=== PATIENT | female | born 1940 | race Caucasian/White ===

== ENCOUNTER 2017-02-08 00:29 | Inpatient (IN) | payer OTHER ==
[2017-02-08] VITALS (7 sets, daily range): BP systolic 117–158; BP diastolic 36–64
[~2017-02-08] VITALS: Ht 172.7 cm; Wt 77.1 kg
--- NOTE | ~2017-02-08 | HC ---
[facility] [place] [address] CONSULTATION Name: CORRY BRISENO Room #: 463-P [facility] IN M.R.#: [id number] Admission: 02/09/17 Attend Phys: Robel Wilson Discharge: 02/09/17 Date of : 40 Report #: [id number] THIS REPORT FOR: //name// CC: Kemal Doran DATE OF SERVICE: 02/08/2017 HISTORY OF PRESENT ILLNESS: This is a 76-year-old female patient who was evaluated by me today for an episode of what she described as lightheadedness. Symptoms are somewhat nonspecific. It happened yesterday. She was feeling hot and she became dizzy. She did not have any associated ____ with any focal deficit. She did have some balance problem with it. She could not get up with it. Symptoms were moderately severe. This came spontaneously and became better spontaneously. Review of system indicates that this patient had a tremor. She was diagnosed with essential tremor. A stimulator was put in 2005 at [facility]. It improved this tremor significantly. This stimulator is not compatible with MRI and she indicates she cannot have an MRI. She does have some trouble with breast lumps and she had some radiation in the past. She does have a history of depression and she takes medication for that. As per record, she has a history of atrial fibrillation and she is on Eliquis for that. REVIEW OF SYSTEMS: Her 14-point review of system was carried out. She feels back to her baseline and she indicates that she does not have any new eye, ENT, cardiac, respiratory, GI, , musculoskeletal, constitutional, dermatological, hematological, psychiatric, throat or allergic symptom associated with present symptomatology. PAST MEDICAL HISTORY: Positive for atrial fibrillation. FAMILY HISTORY: Negative for early age strokes. SOCIAL HISTORY: She does not smoke. PHYSICAL EXAMINATION: Indicate that she is alert and responsive. Her speech is somewhat different, but she indicated this is her baseline. Her memory and fund of knowledge is unremarkable. Cranial nerve examination 2-12 is unremarkable. She has symmetrical strength, sensation, reflexes and tone in all 4 extremities. There is no cerebellar sign. She does have walking difficulty, but she indicates this is her baseline since several years and has been attributed to her stimulator. She is a well-developed individual who does not have any dysmorphic features of eyes, ears and face. Her vision and hearing is intact. She does have irregular heart. Her heart sounds looks unremarkable. She does not have any respiratory difficulty and there does not appear to be significant rhonchi. Her pulses are [facility] [address] [place] [address] CONSULTATION Name: CORRY BRISENO Room #: 463-P [facility] IN ..#: [id number] Admission: 02/09/17 Attend Phys: Robel Wilson Discharge: 02/09/17 Date of : 40 Report #: [id number] palpable. She has no edema, cyanosis or jaundice. Her blood pressure is 118/37, pulse is 60, temperature is 98, and respiration is 20. LABORATORY DATA: Her white count is normal and she is not anemic. Her creatinine is normal at 0.8. Her TSH is a trace high at 12.4. She did have a CT scan of the head done without contrast, which does not show any acute changes. IMPRESSION: This episode she has does not appear to be neurological. However, neurological etiology cannot be fully excluded. We will do some workup to exclude that. She cannot have an MRI because of her stimulator, so I discussed with her indication, potential complication and alternative for CT angio in this patient. She understands those things. She wants to proceed with it and we will do that to exclude that. I will suggest looking for systemic and cardiac etiology for the patient's symptom. That workup I will defer to you. If her neurological workup as outlined above, to be negative, then I think we should concentrate on looking for any systemic cause, which appear to be likely even now. RECOMMENDATIONS: 1. CT angio of the head and back. 2. EEG. 3. Her TSH is high and we will also check her B12 levels. Further workup in that regard, I will defer to yourself as well as treatment. 4. We will get PT, OT and see how she does with it. 5. I recommend that she follow up with the [facility] for her stimulator. If she wants to go to somebody closer, she can go here, but we do not have computer of her stimulator or doing other workup in that regard. Thank you very much for this referral and if you have any questions, please feel free to contact me. <ELECTRONICALLY SIGNED> By: Vince Jackson MD 02/09/17 [id number] Vince Jackson MD /nt
--- NOTE | ~2017-02-08 | EKG ---
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: BHARAT : 1940 Requested By: Aniket Johnson Order Number: [id number] MD: Anderson Corral Measurements Intervals [place] Rate: 53 P: 76 [place]: 249 QRS: -35 QRSD: 85 T: 7 QT: 347 QTc: 326 Interpretive Statements Poor quality data, interpretation affected Possibly sinus rhythm Artifact in lead(s) I,II,III,aVR,aVL,aVF,V1,V2,V3,V4,V5,V6 No previous ECG available for comparison repeat tracing recommended Electronically Signed On 02-08-2017 8:33:36 CDT by Anderson Corral [email or web address] <ELECTRONICALLY SIGNED> By: Anderson Corral MD, [facility] 02/08/17 0833 0126 0126 Anderson Corral MD, [facility] /EPI
[~2017-02-08 00:29] MED LIST: ACETAMINOPHEN325 M1 PO; ALEVE220 M1; ASA5UEC PO; CLONAZEPAM PO; COLACE100 MG PO; FLECAINIDE ACE100 MG PO; HYDROCODON-ACE1 EAC7 PO; LIPITOR10 MG PO; LIPITOR20 MG PO; LOPRESSOR25 PO; PRAVASTATIN SOD10 MG PO; PROTONIX40 M2 PO; PROTONIX40 MG PO; SERTRALINE HCL25 M1 PO; TOPROL XL25 MG PO; VALIUM5 MG PO; ZANTAC 150MG T150 M1 PO; ZOLOFT 50 MG TA50 M1 PO
[2017-02-08 01:05] LABS: HEMATOCRIT 40.4 % (37.0-47.0); HEMOGLOBIN 13.9 gm/dL (12.0-15.0); MCH 32.1 pg (26.0-34.0); MCHC 34.4 g/dL (28.0-37.0); MCV 93.1 fL (80.0-100.0); RBC 4.34 mil/uL (4.20-5.00); RDW 12.8 % (10.5-14.5); WBC 9.5 thou/uL (4.0-11.0)
[2017-02-08 01:27] LABS: ANION GAP 10 mmol/L (7-16); BUN 15 mg/dL (7-18); CHLORIDE 104 mmol/L (98-107); CO2 26 mmol/L (21-32); CREATININE 0.8 mg/dL (0.6-1.3); GLUCOSE 105 mg/dL (70-99); SODIUM 140 mmol/L (136-145); TROPONIN-I < 0.04 ng/mL (<0.04-0.07)
[2017-02-08 01:29] LABS: POTASSIUM 4.2 mmol/L (3.5-5.1)
[2017-02-08] MEDS ORDERED: ELIQUIS5 MG PO (03:32)
[2017-02-08] MEDS ORDERED: CLONAZEPAM 0.50.5 M1 (03:32)
[2017-02-08] MEDS ORDERED: LEVOTHYROXINE0.05 MG PO (03:33)
[2017-02-09] VITALS (8 sets, daily range): BP systolic 102–135; BP diastolic 42–60
[2017-02-09 06:41] LABS: ALBUMIN 3.2 g/dL (3.4-5.0); CALCIUM 8.8 mg/dL (8.5-10.1); CREATININE 0.9 mg/dL (0.6-1.3); MAGNESIUM 2.3 mg/dL (1.8-2.4); POTASSIUM 4.4 mmol/L (3.5-5.1); TOTAL BILIRUBIN 0.5 mg/dL (<0.1-1.0); TOTAL PROTEIN 5.7 g/dL (6.4-8.2)
[2017-02-09] MEDS ORDERED: LEVOTHYROXINE 0.1 MG PO (11:53)
== END 2017-02-09 15:57 | disposition home or self-care (01) | DRG 312 ==
LOC: ER 00:29 → EROBS 03:16 → 4W 03:16
PROVIDERS: Emergency Medicine; Nurse Practitioner
DX: I95.1 Orthostatic hypotension (principal); R00.1 Bradycardia, unspecified; I48.91 Unspecified atrial fibrillation; E78.5 Hyperlipidemia, unspecified; F32.9 Major depressive disorder, single episode, unspecified; I10 Essential (primary) hypertension; R25.1 Tremor, unspecified; F41.9 Anxiety disorder, unspecified; E03.9 Hypothyroidism, unspecified; M79.2 Neuralgia and neuritis, unspecified; T44.7X5A Adverse effect of beta-adrenoreceptor antagonists, initial encounter; Z28.21 Immunization not carried out because of patient refusal; Z85.3 Personal history of malignant neoplasm of breast; Z88.0 Allergy status to penicillin; Z88.1 Allergy status to other antibiotic agents; Z88.2 Allergy status to sulfonamides; Z87.891 Personal history of nicotine dependence; Z79.82 Long term (current) use of aspirin

== ENCOUNTER 2017-03-21 12:55 | Inpatient (IN) | payer OTHER ==
[~2017-03-21] VITALS: Ht 172.7 cm; Wt 64.2 kg
--- NOTE | ~2017-03-21 | D ---
[facility] [address] DISCHARGE SUMMARY Name: CORRY BRISENO Room #: 210-P [facility] IN M.R.#: [id number] Admission: 03/21/17 Attend Phys: Mina Prieto MD, Discharge: Date of : 40 Report #: [id number] THIS REPORT FOR: //name// CC: Kemal Prieto DISCHARGE DIAGNOSES: 1. Atrial fibrillation. 2. Sick sinus syndrome. 3. Parkinson's disease, status post Medtronic deep brain stimulator. PROCEDURES PERFORMED: [employer]. Mark dual-chamber pacemaker implantation. HISTORY: The patient is a 76-year-old with a known history of atrial fibrillation and sick sinus syndrome. She has recently been experiencing worsening bradycardia and her beta blockers had to be discontinued. She recently presented to the [facility] with AFib and was given a dose of metoprolol and then converted to sinus bradycardia in the 30s or 40s. As such, she was admitted to the hospital for further evaluation. HOSPITAL COURSE: She was monitored in the hospital and her anticoagulation was stopped. She remained in sinus rhythm throughout the hospitalization. On March 23, she underwent successful implantation of a [employer] Mark MRI-compatible pacemaker, implanted on the right side. The purpose of the MRI-compatible pacemaker was that she has an MRI-compatible deep brain stimulator and may need future neuro MRIs. The day after device implantation, she was doing well. Her vitals were stable. Telemetry showed sinus rhythm. Her device was checked and found to be functioning normally. There was no detectable interaction between her neuro stimulator and the newly implanted pacemaker. Her chest x-ray showed stable lead positions, with no pneumothorax. As such, she was deemed stable for discharge home. Discharge instructions were reviewed. DISCHARGE MEDICATIONS: She will resume her metoprolol 25 mg twice a day and she will continue her flecainide 100 mg twice a day. She was instructed to resume her anticoagulation on Sunday morning. She will follow up with me in clinic in 7-10 days for a site check. By: 0930 [id number] Evangelist Pierson MD /nt
--- NOTE | ~2017-03-21 | H ---
[facility] [place] [address] HISTORY AND PHYSICAL Name: CORRY BRISENO Room #: 210-P [facility] IN M.R.#: [id number] Admission: 03/21/17 Attend Phys: Mina Prieto MD, Discharge: 03/24/17 Date of : 40 Report #: [id number] THIS REPORT FOR: //name// CC: Kemal Prieto DATE OF SERVICE: 03/21/2017 HISTORY OF PRESENT ILLNESS: The patient is a 76-year-old female well known to myself. I admitted her from the office today. She had come in feeling poorly and brought herself in with AFib with rapid ventricular response. She has had intermittent issues with this AFib, but they have been fairly few and far between. Unfortunately, she is very symptomatic. She also has some underlying tachybrady, so we stopped the beta adin 6 months ago. Unfortunately, this due to significant bradycardia and lethargy. She felt better, but this is the first breakthrough. She is maintained on flecainide 100 b.i.d., Xanax, metoprolol had been discontinued as I stated, clonazepam b.i.d.; Eliquis 5 b.i.d. which we are currently holding, last dose was on the night of March 20, she did not take any today; Lipitor 10, Protonix, calcitriol. No chest pain or anginal complaints. I did obtain an echo Doppler at [facility] before we transferred her over. There is mitral valve prolapse which is noted with kpbw-[id number] MR, mild AI, EF is preserved. There is mild bilateral atrial enlargement. That formal report will be put on the chart. PAST MEDICAL HISTORY: for paroxysmal AFib, some Parkinson's like tremor with a deep brain stimulator placed in March which has significantly helped, breast cancer, mitral valve prolapse, mild pulmonary hypertension. No surgeries. ALLERGIES: PENICILLIN, BACTRIM, SULFA, AMOXICILLIN, ZITHROMAX, AND LATEX. SOCIAL HISTORY: Rare alcohol, remote smoker. She lives alone. She is accompanied by friends. REVIEW OF SYSTEMS: Essentially negative except for stated above. LABORATORY WORK: Sodium 141, potassium 4.2, BUN 14, creatinine 0.9. Liver function tests were normal. H and H 14 and 42 with a white count of 7. PHYSICAL EXAMINATION: GENERAL: Pleasant and alert, minimal resting tremor. VITAL SIGNS: Blood pressure 124/50, pulse is 40s (after dose of 50 of atenolol in the office, she became mildly bradycardic and hypotensive, but this has resolved with some fluids in the office). HEENT: Eyes reveal xanthelasmas. Pharynx is clear. [facility] [address] [place] [address] HISTORY AND PHYSICAL Name: CORRY BRISENO Room #: 210-P [facility] IN M.R.#: [id number] Admission: 03/21/17 Attend Phys: Mina Prieto MD, Discharge: 03/24/17 Date of : 40 Report #: [id number] NECK: Shows preserved upstrokes without JVD or bruits. LUNGS: Clear. CARDIAC: Regular rhythm, bradycardic, S1, S2. There is a holosystolic murmur and I do not appreciate a mid systolic click. ABDOMEN: Soft. No HSM, no abdominal bruit. EXTREMITIES: No edema. Pulses were intact. NEUROLOGIC: Nonfocal. SKIN: Warm and dry without xanthoma or ulcer. MUSCULOSKELETAL: No gross joint deformity. ASSESSMENT: 1. Tachybrady syndrome. 2. Early sick sinus. 3. Paroxysmal atrial fibrillation with rapid ventricular response, symptomatic. 4. Mitral valve prolapse, stable. 5. Hypertension. RECOMMENDATIONS AND PLAN: Admitted here to telemetry unit, last dose of Eliquis was Sunday night, March 20. Laboratory work is stable. She is stable low 40s, hemodynamically stable. We will proceed with permanent pacemaker in AV sequential trying to maintain sinus rhythm. Just she has mild biatrial enlargement and has not had a long duration of this AFib. She has been anticoagulated until yesterday without any issues. Dr. Pierson of the EP service will see and we will monitor here in CCU until pacemaker placement. Because of the anticoagulant, we will need to wait until Sunday morning, which will be 2-1/2 days since the last dose of Eliquis. This has been discussed with the patient and she is comfortable. Thank you for asking us to assist in the care of this patient. <ELECTRONICALLY SIGNED> By: Mina Prieto MD, FACC 04/02/17 0855 21 2324 Mina Prieto MD, FACC /nt
--- NOTE | ~2017-03-21 | P ---
[facility] [place] [address] PROCEDURE REPORT Name: CORRY BRISENO Room #: 210-P [facility] IN M.R.#: [id number] Admission: 03/21/17 Attend Phys: Mina Prieto MD, Discharge: Date of : 40 Report #: [id number] THIS REPORT FOR: //name// CC: Kemal Prieto DATE OF SERVICE: 03/23/2017 PROCEDURE: Pacemaker insertion. PREOPERATIVE DIAGNOSES: 1. Sick sinus syndrome. 2. Atrial fibrillation. 3. Tachycardia-bradycardia syndrome. HISTORY: The patient is a 76-year-old with history of atrial fibrillation and symptomatic sinus bradycardia, was recently in clinic when she was experiencing atrial fibrillation with rapid ventricular response. She was given a dose of metoprolol and she converted to sinus bradycardia with heart rates in the 30s and 40s, which was symptomatic. As such, we have recommended dual chamber pacemaker insertion. ANESTHESIA: The patient underwent MAC anesthesia with no anesthesia related complications. DESCRIPTION OF PROCEDURE: The patient underwent informed consent. We discussed the details of the procedure including the risks, which include but not limited to bleeding, infection, vascular damage as well as stroke or WI. She understood these risks and was willing to proceed. As such, she is brought to the EP laboratory in a fasting and state. Of note, she does have a Medtronic deep brain stimulator for Parkinson's disease, which is MRI compatible. As such, I recommended implantation of an MRI compatible [employer]. Mark pacemaker, so that she can continue to receive brain MRIs. As such, the patient received IV antibiotics prior to initiation of the procedure. She was prepped and draped in a sterile fashion. A venogram was performed showing patency of the right axillary vein. Next, I injected 20 mL of lidocaine below the level of the right clavicle. Incision was made. A pocket was created over the prepectoral fascia and then access was obtained twice to the right axillary vein using the extrathoracic approach, which she is positioned using the modified Seldinger technique. Leads were positioned both in the right ventricular apex and right atrial appendage both with adequate pacing and sensing thresholds and the leads were sutured to the prepectoral fascia using Ethibond suture. The device was connected to the leads, tug test were performed and the device was placed in the pocket. The pocket was irrigated with vancomycin solution and then the pocket [address] [address] PROCEDURE REPORT Name: CORRY BRISENO Room #: 210-P [facility] IN [facility]#: [id number] Admission: 03/21/17 Attend Phys: Mina Prieto MD, Discharge: Date of : 40 Report #: [id number] was closed in 3 layers using 2-0 for the deep layer, 3-0 for the mid layer, 4-0 for the subcuticular layer. Surgical glue was placed to the outer skin. The patient awoke neurologically and hemodynamically intact with no complications and no significant bleeding. The implanted pacemaker was an MRI compatible [id number], serial #[id number]. The atrial lead was a [employer] model #[id number], 46 cm, serial #[id number]. This lead demonstrated an R-wave of 1.3 millivolts, a pacing impedance of 540 ohms and pacing threshold of 1 volt at 1 millisecond. The RV lead was a [employer] model #[id number], 52 cm, serial #[id number] with an R-wave of 5.7 millivolts, a pacing impedance of 740 ohms and pacing threshold 0.5 volts at 0.4 milliseconds. The device was programmed to the DDDR 60-130 mode. Her Medtronic neuro stimulator was interrogated and there was no evidence of any interference between the neuro stimulator and the pacemaker. CONCLUSIONS: 1. Successful implantation of a [employer] MRI compatible dual chamber pacemaker. 2. Satisfactory atrial and ventricular pacing sensing thresholds. 3. No evidence of interference between the Medtronic deep brain stimulator and the [employer] Mark dual chamber pacemaker. By: 1446 [id number] Evangelist Pierson MD /nt
--- NOTE | ~2017-03-21 | HC ---
[facility] [place] [address] CONSULTATION Name: CORRY BRISENO Room #: 210-P [facility] IN M.R.#: [id number] Admission: 03/21/17 Attend Phys: Mina Prieto MD, Discharge: Date of : 40 Report #: [id number] THIS REPORT FOR: //name// CC: Kemal Prieto REASON FOR CONSULTATION: Sick sinus syndrome. HISTORY OF PRESENT ILLNESS: The patient is a 76-year-old female with a history of paroxysmal AFib, presented to the clinic with AFib with RVR, was given some beta blockers and then converted to sinus rhythm and had sinus paulie into the 30s and 40s with lightheadedness and fatigue. As such, I have been asked to have the patient undergo a pacemaker implantation. REVIEW OF SYSTEMS: GENERAL: No fevers or chills. HEENT: No blurred vision. CARDIOVASCULAR: No chest pain. PULMONARY: No productive cough. GASTROINTESTINAL: No nausea or vomiting. GENITOURINARY: No dysuria. MUSCULOSKELETAL: No myalgias or arthralgias. ENDOCRINE: No heat or cold intolerance. NEUROLOGIC: No focal weakness. MUSCULOSKELETAL: No myalgias or arthralgias. PAST MEDICAL HISTORY: 1. Paroxysmal AFib. 2. Sick sinus syndrome. 3. Deep vein stimulator Medtronic placed in March for her tremors, mitral valve prolapse, mild pulmonary hypertension. ALLERGIES: Include PENICILLIN, BACTRIM, SULFA, AMOXICILLIN, ZITHROMAX and LATEX. CURRENT MEDICATIONS: Include beta adin, flecainide, Eliquis, Sertraline, pantoprazole, atorvastatin, calcitriol. SOCIAL HISTORY: No tobacco. FAMILY HISTORY: Noncontributory. PHYSICAL EXAMINATION: VITAL SIGNS: Temperature 37.2, pulse 86, respiratory , blood pressure 134/42, sats 92%. LABORATORY DATA: Labs have been reviewed. White count 7.7, hemoglobin 14.3, [facility] [address] [place] [address] CONSULTATION Name: CORRY BRISENO Room #: [address] [place] [address] [place] [facility]#: [id number] Admission: 03/21/17 Attend Phys: Mina Prieto MD, Discharge: Date of : 40 Report #: [id number] platelets 235. Chemistries: Potassium 4.2, creatinine is 0.9. ASSESSMENT AND PLAN: In summary, the patient is a 76-year-old with a history of atrial fibrillation as well as sick sinus syndrome manifesting symptoms of tachycardia-bradycardia syndrome. In order to optimally control her arrhythmias, she will need to be on both beta adin and flecainide, which she cannot tolerate due to the bradycardia. As such, I have recommended dual chamber pacemaker implantation. We have discussed the details of the procedure including the risks, which include but not limited to bleeding, infection, pneumothorax, and cardiac perforation. I have recommended that she undergo an MRI compatible pacemaker given her known deep brain stimulator and neurologic issues and certainly the need for future MRIs. Thank you for allowing me to participate in her care. <ELECTRONICALLY SIGNED> By: Evangelist Pierson MD 03/23/17 1533 0840 1133 Evangelist Pierson MD /nt
[~2017-03-21 12:55] MED LIST changes: +CLONAZEPAM 0.50.5 M1; +ELIQUIS5 MG PO; +LEVOTHYROXINE 0.1 MG PO; +LEVOTHYROXINE0.05 MG PO
[2017-03-21 14:20] VITALS: BP 117/59
[2017-03-21] MEDS ORDERED: CALCITRIOL0.25 MCG PO (15:05)
[2017-03-21 18:02] LABS: HEMATOCRIT 42.7 % (37.0-47.0); HEMOGLOBIN 14.3 gm/dL (12.0-15.0); MCH 31.8 pg (26.0-34.0); MCHC 33.6 g/dL (28.0-37.0); MCV 94.5 fL (80.0-100.0); RBC 4.52 mil/uL (4.20-5.00); RDW 12.9 % (10.5-14.5); WBC 7.7 thou/uL (4.0-11.0)
[2017-03-21 18:18] LABS: ALBUMIN 3.5 g/dL (3.4-5.0); CALCIUM 8.9 mg/dL (8.5-10.1); CREATININE 0.9 mg/dL (0.6-1.0); POTASSIUM 4.2 mmol/L (3.5-5.1); TOTAL BILIRUBIN 0.5 mg/dL (<0.1-1.0); TOTAL PROTEIN 6.8 g/dL (6.4-8.2)
[2017-03-21 20:48] VITALS: BP 125/50
[2017-03-22] VITALS (7 sets, daily range): BP systolic 90–124; BP diastolic 45–59
[2017-03-23] VITALS (11 sets, daily range): BP systolic 100–145; BP diastolic 42–82
[2017-03-24 04:12] VITALS: BP 113/66
[2017-03-24 07:11] VITALS: BP 144/77
[2017-03-24 07:15] VITALS: BP 144/77
[2017-03-24 09:04] VITALS: BP 144/77
[2017-03-24] MEDS ORDERED: LOPRESSOR25 PO (09:24)
[2017-03-24 11:03] VITALS: BP 147/68
== END 2017-03-24 13:40 | disposition home or self-care (01) | DRG 244 ==
LOC: 2N 12:55
PROVIDERS: Nurse Practitioner Gerontology
PROC: 02H63JZ Insertion of Pacemaker Lead into Right Atrium, Percutaneous Approach (ICD-10-PCS; principal; 2017-03-23)
PROC: 02HK3JZ Insertion of Pacemaker Lead into Right Ventricle, Percutaneous Approach (ICD-10-PCS; principal; 2017-03-23)
PROC: 0JH606Z Insertion of Pacemaker, Dual Chamber into Chest Subcutaneous Tissue and Fascia, Open Approach (ICD-10-PCS; principal; 2017-03-23)
DX: I49.5 Sick sinus syndrome (principal); I48.0 Paroxysmal atrial fibrillation; G20 Parkinson's disease; Z60.2 Problems related to living alone; I34.1 Nonrheumatic mitral (valve) prolapse; I10 Essential (primary) hypertension; I27.2 Other secondary pulmonary hypertension; Z88.0 Allergy status to penicillin; Z88.2 Allergy status to sulfonamides; Z91.040 Latex allergy status; Z85.3 Personal history of malignant neoplasm of breast; Z88.1 Allergy status to other antibiotic agents; Z87.891 Personal history of nicotine dependence
CPT/HCPCS: 10081; 62110; 62900; 70005

== ENCOUNTER → 2017-06-06 | Outpatient (CLI) | payer OTHER ==
[~2017-06-06] MED LIST changes: +CALCITRIOL0.25 MCG PO
== END ==
LOC: RAD 13:50
DX: Z12.31 Encounter for screening mammogram for malignant neoplasm of breast (principal)

== ENCOUNTER → 2019-07-04 | Outpatient (CLI) | payer OTHER | LOC: RAD 04:15 | DX: Z12.31 Encounter for screening mammogram for malignant neoplasm of breast (principal) ==

== ENCOUNTER → 2020-01-14 | Outpatient (CLI) | payer OTHER | LOC: SJCVC 13:15 | DX: I34.0 Nonrheumatic mitral (valve) insufficiency (principal); I34.1 Nonrheumatic mitral (valve) prolapse; I48.0 Paroxysmal atrial fibrillation; E78.00 Pure hypercholesterolemia, unspecified; Z95.0 Presence of cardiac pacemaker ==

== ENCOUNTER → 2020-07-15 | Outpatient (CLI) | payer OTHER ==
[~2020-07-15] MED LIST changes: +COZAAR 25 MG TA25 M1 PO; +DEMADEX20 MG PO
== END ==
LOC: SJCVC 13:16
PROVIDERS: ATTEND Internal Medicine Cardiovascular Disease
DX: I45.10 Unspecified right bundle-branch block (principal); R94.31 Abnormal electrocardiogram [ECG] [EKG]; I48.91 Unspecified atrial fibrillation; I34.0 Nonrheumatic mitral (valve) insufficiency; Z79.899 Other long term (current) drug therapy; Z87.891 Personal history of nicotine dependence; Z95.0 Presence of cardiac pacemaker

== ENCOUNTER → 2020-08-06 | Outpatient (CLI) | payer OTHER | LOC: SJCVCIMAG 08:31 | PROVIDERS: ATTEND Internal Medicine Cardiovascular Disease | DX: I08.8 Other rheumatic multiple valve diseases (principal); I27.20 Pulmonary hypertension, unspecified; R94.31 Abnormal electrocardiogram [ECG] [EKG]; I48.0 Paroxysmal atrial fibrillation; I49.5 Sick sinus syndrome; E78.00 Pure hypercholesterolemia, unspecified; Z79.899 Other long term (current) drug therapy; Z87.891 Personal history of nicotine dependence; Z95.0 Presence of cardiac pacemaker ==

== ENCOUNTER 2020-08-10 08:55 | Emergency (ER) | payer OTHER ==
[~2020-08-10] VITALS: Ht 170.2 cm; Wt 73.9 kg
[~2020-08-10 08:55] MED LIST changes: -COZAAR 25 MG TA25 M1 PO; -DEMADEX20 MG PO
[2020-08-10 09:50] LABS: ABSOLUTE NEUTROPHILS 6.1 thou/uL (1.4-8.2); BASOPHILS 0.8 % (0.0-2.0); EOSINOPHILS 0.6 % (0.0-3.0); HEMATOCRIT 42.7 % (37.0-47.0); HEMOGLOBIN 14.5 gm/dL (12.0-15.0); LYMPHOCYTES 18.2 % (24.0-44.0); MCH 32.6 pg (26.0-34.0); MCV 95.9 fL (80.0-100.0); MONOCYTES 11.4 % (1.0-8.0); PLATELET COUNT 235 thou/uL (150-400); RBC 4.45 mil/uL (4.20-5.00); RDW 12.3 % (10.5-14.5); WBC 8.9 thou/uL (4.0-11.0)
[2020-08-10 10:10] LABS: ANION GAP 11 mmol/L (7-16); BUN 21 mg/dL (7-18); CALCIUM 9.3 mg/dL (8.5-10.1); CHLORIDE 99 mmol/L (98-107); CO2 29 mmol/L (21-32); CREATININE 0.9 mg/dL (0.6-1.0); GLUCOSE 112 mg/dL (74-106); POTASSIUM 3.3 mmol/L (3.5-5.1); SODIUM 139 mmol/L (136-145)
[2020-08-10 10:20] LABS: ALBUMIN 3.9 g/dL (3.4-5.0); SGOT 21 U/L (15-37); SGPT 19 U/L (30-65); TOTAL BILIRUBIN 0.9 mg/dL (0.2-1.0); TOTAL PROTEIN 7.5 g/dL (6.4-8.2); TROPONIN-I <0.06 ng/mL (<0.06)
--- NOTE | 2020-08-10 12:22 | EKG ---
[facility] [place] [address] ELECTROCARDIOGRAM REPORT Name: CORRY BRISENO Room #: [facility]#: [id number] Admission: 08/10/20 Attend Phys: Discharge: Date of : 40 Report #: [id number] THIS REPORT FOR: cc: Kemal Haynes MD, Eric K. 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: : 1940 Requested By: Lorenzo Ruffin Order Number: [id number] MD: Lionel Guadalupe Measurements Intervals [place] Rate: 64 P: 26 [place]: 189 QRS: -39 QRSD: 106 T: 100 QT: 486 QTc: 502 Interpretive Statements Sinus rhythm LVH with secondary repolarization abnormality Compared to ECG 02/08/2017 01:26:52 Left ventricular hypertrophy now present Early repolarization now present Electronically Signed On 08-10-2020 12:21:47 CDT by Lionel Guadalupe [email or web address] <ELECTRONICALLY SIGNED> By: Lionel Guadalupe MD, FACC 08/10/20 1221 0932 0932 Lionel Guadalupe MD, [facility] /EPI
[2020-08-10] MEDS ORDERED: COZAAR 25 MG TA25 M1 PO (13:37)
[2020-08-10] MEDS ORDERED: DEMADEX20 MG PO (13:38)
[2020-08-10 15:36] VITALS: BP 131/53
== END 2020-08-10 15:37 | disposition home or self-care (01) ==
LOC: ER 08:55
PROVIDERS: Emergency Medicine
DX: R55 Syncope and collapse (principal); R10.30 Lower abdominal pain, unspecified; R11.2 Nausea with vomiting, unspecified; I48.91 Unspecified atrial fibrillation; E78.5 Hyperlipidemia, unspecified; Z79.899 Other long term (current) drug therapy; Z88.0 Allergy status to penicillin; Z88.8 Allergy status to other drugs, medicaments and biological substances; Z88.1 Allergy status to other antibiotic agents; Z91.048 Other nonmedicinal substance allergy status